=== PATIENT | female | born 2000 | race Caucasian/White ===

== ENCOUNTER 2022-04-26 12:25 | Emergency (ER) | payer MEDICAID ==
[2022-04-26] MEDS ORDERED: Glucagon,Human Recombinant 1 MG Vial IM ONE (12:42)
== END 2022-04-26 13:12 | disposition home or self-care (01) ==
LOC: VM.ED 12:25
DX: T18.108A Unspecified foreign body in esophagus causing other injury, initial encounter (principal)
CPT/HCPCS: 96372; 99283; J1610